=== PATIENT | male | born 1995 | race Caucasian/White ===

== ENCOUNTER 2022-10-01 18:00 | Emergency (ER) | payer OTHER ==
[~2022-10-01] VITALS: Ht 177.8 cm; Wt 75.7 kg
--- NOTE | 2022-10-01 19:27 | NUR ---
seeing and being examined by Dr. Fisher
--- NOTE | 2022-10-01 19:40 | NUR ---
labs being collected at this time
[2022-10-01 20:03] LABS: HEMATOCRIT 42.9 % (36.7-47.1); MEAN CORPUSCULAR HEMOGLOBIN 29.8 uug (23.8-33.4); MEAN CORPUSCULAR VOLUME 87.7 fL (73.0-96.2); PLATELET COUNT (AUTO) 153 K/uL (152-348)
[2022-10-01 20:13] LABS: BILIRUBIN,DIRECT 0.2 mg/dL (0.0-0.2); BILIRUBIN,TOTAL 0.5 mg/dL (0.2-1.0); POTASSIUM 4.1 mmol/L (3.5-5.1); TOTAL PROTEIN, SERUM 7.2 g/dL (6.4-8.2)
[2022-10-01] MEDS ORDERED: CODE30TA PO (20:29)
[2022-10-01 20:34] LABS: *MONOTEST POSITIVE (NEGATIVE)
[2022-10-01 20:55] VITALS: BP 120/64
--- NOTE | 2022-10-01 20:55 | NUR ---
Patient discharged to home in stable condition. Written and verbal after care instructions given. Patient verbalizes understanding of instructions. Stressed follow up or return to ER for worsening s/s. Patient walked out with steady gait.
== END 2022-10-01 20:56 | disposition home or self-care (01) ==
LOC: ER 18:04
DX: B27.90 Infectious mononucleosis, unspecified without complication (principal); J03.90 Acute tonsillitis, unspecified; R74.01 Elevation of levels of liver transaminase levels
CPT/HCPCS: 36415; 85025; 86308; 86644; 86645; A4663